=== PATIENT | male | born 1930 | race Caucasian/White ===

== ENCOUNTER 2018-02-08 16:28 | Inpatient (IN) | payer MEDICARE, BC ==
[2018-02-08 17:45] LABS: BASO % 0.4 % (0.0-1.0); EOS # 0.3 10^3/uL (0.0-0.50); EOS % 6.3 % (0.0-3.0); HEMATOCRIT 36.6 % (42.0-52.0); IMMATURE GRANULOCYTE % 0.4 % (0-3.0); LYMPH # 1.3 10^3/uL (1.5-4.5); LYMPH % 23.9 % (24.0-44.0); MEAN CORPUSCULAR HEMOGLOBIN 31.7 pg (27.0-33.0); MEAN CORPUSCULAR HGB CONC 32.8 g/dl (32.0-36.5); MEAN CORPUSCULAR VOLUME 96.8 fl (80.0-96.0); MONO # 0.5 10^3/uL (0.0-0.8); MONO % 9.7 % (0.0-5.0); NEUTROPHILS # 3.2 10^3/uL (1.8-7.7); NEUTROPHILS % 59.3 % (36.0-66.0); PLATELET COUNT, AUTOMATED 198 10^3/uL (150-450); RED BLOOD COUNT 3.78 10^6/uL (4.30-6.10); RED CELL DISTRIBUTION WIDTH 14.7 % (11.5-14.5); WHITE BLOOD COUNT 5.4 10^3/uL (4.0-10.0)
[2018-02-08 17:54] LABS: INR 1.11; PROTHROMBIN TIME 14.4 SECONDS (12.1-14.4)
[2018-02-08 17:55] LABS: PARTIAL THROMBOPLASTIN TIME 29.7 SECONDS (25.4-37.6)
[2018-02-08 18:05] LABS: ALBUMIN 3.3 GM/DL (3.2-5.2); ALBUMIN/GLOBULIN RATIO 0.97 (1.00-1.93); ALKALINE PHOSPHATASE 63 U/L (45-117); ALT/SGPT 22 U/L (12-78); ANION GAP 5 MEQ/L (8-16); AST/SGOT 20 U/L (7-37); BILIRUBIN,DIRECT 0.1 MG/DL (0.0-0.2); BILIRUBIN,TOTAL 0.4 MG/DL (0.2-1.0); BLOOD UREA NITROGEN 26 MG/DL (7-18); CALCIUM LEVEL 8.3 MG/DL (8.8-10.2); CARBON DIOXIDE LEVEL 28 MEQ/L (21-32); CHLORIDE LEVEL 113 MEQ/L (98-107); CPK CREATINE PHOSPHOKINASE 135 U/L (39-308); CREATININE FOR GFR 1.01 MG/DL (0.70-1.30); GLOMERULAR FILTRATION RATE > 60.0 (>35); GLUCOSE, FASTING 106 MG/DL (70-100); POTASSIUM SERUM 4.2 MEQ/L (3.5-5.1); SODIUM LEVEL 146 MEQ/L (136-145); TOTAL PROTEIN 6.7 GM/DL (6.4-8.2); TROPONIN I 0.02 NG/ML (< 0.10)
[2018-02-08] MEDS: NS 1,000 ML IV (18:15)
[2018-02-08 18:18] LABS: CK-MB VALUE MASS 3.4 NG/ML (<3.6); DIGOXIN LEVEL 0.2 NG/ML (0.5-2.0); FREE T4 0.95 NG/DL (0.76-1.46); MB/CK RELATIVE INDEX 2.51 (< OR =4)
[2018-02-08] MEDS ORDERED: PROPOFOL 200 MG/20 ML VIAL As Ordered (20:18)
[2018-02-08] MEDS ORDERED: MIDAZOLAM INJ 2 MG/2 ML VIAL (J2250) As Ordered (20:18)
[2018-02-08] MEDS ORDERED: fentaNYL 100 MCG/2 ML INJECTION (J3010) As Ordered (20:19)
[2018-02-08] MEDS ORDERED: LIDOCAINE 2% INJ 100 MG/5 ML SDV (FOR ANES.) As Ordered (20:21)
[2018-02-08] MEDS: TAMSULOSIN 0.4 MG CAP PO (23:07)
[2018-02-08] MEDS: FINASTERIDE 5 MG TAB PO (23:07)
[2018-02-08] MEDS: PRAVASTATIN 10 MG TAB PO (23:07)
[2018-02-08] MEDS: VITAMIN D 1,000 INTERNATIONAL UNITS TABLET PO (23:07)
[2018-02-09] MEDS: LR 1,000 ML IV ×2 (06:35→19:15)
[2018-02-09] MEDS: ASCORBIC ACID 250 MG TAB PO ×2 (09:17→20:14)
[2018-02-09] MEDS: TAMSULOSIN 0.4 MG CAP PO ×2 (09:17→20:13)
[2018-02-09] MEDS ORDERED: LIDOCAINE 2% INJ 100 MG/5 ML SDV (FOR ANES.) As Ordered ×2 (14:06→22:15)
[2018-02-09] MEDS ORDERED: PROPOFOL 500 MG/50 ML VIAL As Ordered (14:06)
[2018-02-09] MEDS ORDERED: fentaNYL 100 MCG/2 ML INJECTION (J3010) As Ordered ×2 (14:49→22:15)
[2018-02-09] MEDS ORDERED: MIDAZOLAM INJ 2 MG/2 ML VIAL (J2250) As Ordered ×2 (14:49→22:15)
[2018-02-09] MEDS ORDERED: ONDANSETRON 4MG/2ML VIAL (J2405) As Ordered (14:50)
[2018-02-09] MEDS ORDERED: dexameTHASONE 4 MG/ML 1ML VIAL (J1100) As Ordered (14:50)
[2018-02-09] MEDS ORDERED: ceFAZolin 1GM INJ (J0690 PER 500MG) As Ordered (15:05)
[2018-02-09] MEDS: ISOVUE-300 61% 50ML VIAL (Q9967) As Ordered (15:30)
[2018-02-09] MEDS: VANCOMYCIN 1000 MG/20 ML VIAL (J3370) As Ordered (15:31)
[2018-02-09] MEDS: ceFAZolin 1GM INJ (J0690 PER 500MG) As Ordered (15:51)
[2018-02-09] MEDS: ceFAZolin SOD 1 GM in D5W MINI-BAG PLUS 50 ML IV (15:51)
[2018-02-09] MEDS: AMIODARONE 150MG/3ML INJ (J0282) As Ordered (18:08)
[2018-02-09] MEDS: MUPIROCIN 2% OINT 22 GM TUBE As Ordered (18:29)
[2018-02-09] MEDS: LIDOCAINE 1% SDV INJ 30 ML VIAL As Ordered (18:30)
[2018-02-09] MEDS ORDERED: fentaNYL 100 MCG/2 ML INJECTION (J3010) IV ×2 (19:15→21:26)
[2018-02-09] MEDS ORDERED: ONDANSETRON 4MG/2ML VIAL (J2405) IV ×2 (19:15→21:26)
[2018-02-09] MEDS ORDERED: NORCO, ANEXSIA 5/325MG TABLET (HYDROcodone/ACETAMINOPHEN) PO ×2 (19:15→21:26)
[2018-02-09] MEDS: PRAVASTATIN 10 MG TAB PO (20:13)
[2018-02-09] MEDS: AMIODARONE 200 MG TAB (PACERONE) PO (20:13)
[2018-02-09] MEDS: ACETAMINOPHEN TAB 650MG DOSE (2X325MG) PO (20:14)
[2018-02-09] MEDS: FINASTERIDE 5 MG TAB PO (20:14)
[2018-02-09] MEDS: VITAMIN D 1,000 INTERNATIONAL UNITS TABLET PO (20:14)
[2018-02-09] MEDS ORDERED: diphenhydrAMINE INJ 50MG/ML VIAL (J1200) IV (21:26)
[2018-02-09] MEDS ORDERED: NALBUPHINE HCL 10 MG/ML AMP (J2300) IV (21:26)
[2018-02-09] MEDS ORDERED: MORPHINE 10 MG/ML 1ML VIAL (J2270) IV (21:26)
[2018-02-09] MEDS ORDERED: PROMETHAZINE INJ 25 MG/ML VIAL (J2550) IV (21:26)
[2018-02-09] MEDS ORDERED: KETOROLAC 30 MG/ML VIAL (J1885) IV (21:26)
[2018-02-09] MEDS ORDERED: PERCOCET 5MG/325MG TAB PO (21:26)
[2018-02-09] MEDS ORDERED: LR 1,000 ML IV (21:26)
[2018-02-09] MEDS ORDERED: METOCLOPRAMIDE INJ 10MG/2ML VIAL (J2765) IV (21:26)
[2018-02-09] MEDS ORDERED: MEPERIDINE INJ 25 MG/ML VIAL (J2175) IV (21:26)
[2018-02-09] MEDS ORDERED: HYDROMORPHONE HCL 0.5 MG/ 0.5 ML SYRINGE (J1170 PER 1) IV (21:26)
[2018-02-09] MEDS ORDERED: PROPOFOL 200 MG/20 ML VIAL As Ordered ×3 (22:15→23:18)
[2018-02-10] MEDS: AMIODARONE 200 MG TAB (PACERONE) PO ×3 (08:18→17:16)
[2018-02-10] MEDS: TAMSULOSIN 0.4 MG CAP PO (08:18)
[2018-02-10] MEDS: ASCORBIC ACID 250 MG TAB PO (08:18)
[2018-02-10] MEDS: ACETAMINOPHEN TAB 650MG DOSE (2X325MG) PO (08:19)
== END 2018-02-10 18:45 | disposition home or self-care (01) | DRG 243 ==
LOC: M ED 16:28 → M SDC 20:18 → M ED INP 20:34 → M PCU 22:31
PROC: 0JH606Z Insertion of Pacemaker, Dual Chamber into Chest Subcutaneous Tissue and Fascia, Open Approach (ICD-10-PCS; principal; 2018-02-09 00:43)
PROC: 02H63JZ Insertion of Pacemaker Lead into Right Atrium, Percutaneous Approach (ICD-10-PCS; 2018-02-09 00:43)
PROC: 02WA3MZ Revision of Cardiac Lead in Heart, Percutaneous Approach (ICD-10-PCS; 2018-02-09 00:43)
PROC: 02HK3JZ Insertion of Pacemaker Lead into Right Ventricle, Percutaneous Approach (ICD-10-PCS; 2018-02-09 00:43)
DX: I49.5 Sick sinus syndrome (principal); T82.120A Displacement of cardiac electrode, initial encounter; I48.0 Paroxysmal atrial fibrillation; I10 Essential (primary) hypertension; E78.00 Pure hypercholesterolemia, unspecified; Z79.899 Other long term (current) drug therapy; Z79.01 Long term (current) use of anticoagulants; E55.9 Vitamin D deficiency, unspecified; N40.0 Benign prostatic hyperplasia without lower urinary tract symptoms; M19.90 Unspecified osteoarthritis, unspecified site; Z96.641 Presence of right artificial hip joint; Z85.51 Personal history of malignant neoplasm of bladder; Y82.8 Other medical devices associated with adverse incidents